=== PATIENT | male | born 2000 | race Caucasian/White ===

== ENCOUNTER 2019-08-11 23:38 | Emergency (ER) | payer OTHER ==
[~2019-08-11] VITALS: Ht 177.8 cm; Wt 68.0 kg
[2019-08-11 23:40] VITALS: BP 130/74
--- NOTE | 2019-08-11 23:43 | NUR ---
TO LOBBY A/W BED VIA WHEEL CHAIR
--- NOTE | 2019-08-12 04:47 | NUR ---
PATIENT AMBULATED WITH ASSISTANCE TO BED 10.
[2019-08-12] MEDS ORDERED: oxyCODONE/APAP 5/325 MG 1 TAB TAB PO ONE (04:50)
[2019-08-12] MEDS ORDERED: KETOROLAC 60 MG/2 ML VIAL IM ONE (04:50)
--- NOTE | 2019-08-12 05:10 | NUR ---
18 Y/O MALE PRESENTS TO ED, C/O RIGHT FOOT PAIN 03/28. PT STATES HAVING [place] RUN OVER RIGHT FOOT. FULL ROM NOTED. BILAT STRONG FEET STRENGTH. NO SWELLING OR BRUISING NOTED. ABLE TO AMBULATE WITH STEADY GAIT. PT DENIES TAKING ANY MEDICATIONS FOR PAIN. PT VSS. ERMD AWARE. WILL CONTINUE TO MONITOR.
[2019-08-12 07:04] VITALS: BP 130/74
--- NOTE | 2019-08-12 07:04 | NUR ---
PT DISCHARGED WITH PAPERWORK. EDUCATED PT REGARDING MEDICATIONS AND D/C INSTRUCTIONS. PT VERBALIZED UNDERSTANDING OF TEACHING. TOLD PT TO FOLLOW UP WITH PCP AND WHEN TO RETURN TO ED. PT STABLE CONDITION. ABLE TO AMBULATE WITH STEADY GAIT. ALL QUESTIONS ANSWERED.
== END 2019-08-12 07:04 | disposition home or self-care (01) ==
LOC: MED 23:38
DX: S90.31XA Contusion of right foot, initial encounter (principal); V09.9XXA Pedestrian injured in unspecified transport accident, initial encounter; Y93.89 Activity, other specified; Y92.89 Other specified places as the place of occurrence of the external cause; Y99.8 Other external cause status
CPT/HCPCS: 73630; 73700; 96372; 99284; J1885